=== PATIENT | female | born 1975 | race Caucasian/White ===

== ENCOUNTER 2018-02-02 21:52 | Emergency (ER) | payer BC, MEDICAID ==
[~2018-02-02] VITALS: Ht 177.8 cm; Wt 91.0 kg
[2018-02-02 22:38] LABS: BASOPHILS # (AUTO) 0.08 x10^3/uL (0-0.1); BASOPHILS % (AUTO) 1 % (0-1); EOSINOPHILS # (AUTO) 0.16 x10^3/uL (0-0.4); EOSINOPHILS % (AUTO) 2 % (1-7); LYMPHOCYTES # (AUTO) 1.55 x10^3/uL (1-3.4); LYMPHOCYTES % (AUTO) 18 % (22-44); MD NO; MEAN CORPUSCULAR HEMOGLOBIN 27.5 pg (27.0-34.8); MEAN CORPUSCULAR HGB CONC 33.5 g/dL (32.4-35.8); MEAN CORPUSCULAR VOLUME 82.2 fL (80-100); MEAN PLATELET VOLUME 10.4 fL (7.4-10.4); MONOCYTES # (AUTO) 0.57 x10^3/uL (0.2-0.8); MONOCYTES % (AUTO) 7 % (2-9); NEUTROPHILS # (AUTO) 6.19 x10^3/uL (1.8-6.8); NEUTROPHILS % (AUTO) 72 % (42-75); PLATELET COUNT 245 x10^3/uL (130-400); RED BLOOD COUNT 4.71 x10^6/uL (3.82-5.3); RED CELL DISTRIBUTION WIDTH 15.2 % (9.6-15.2)
[2018-02-02 22:44] LABS: ALBUMIN 3.4 g/dL (3.4-5.0); ANION GAP 6 mmol/L (5-15); CALCIUM 8.1 mg/dL (8.5-10.1); CHLORIDE 109 mmol/L (98-107)
[2018-02-02 22:44] LABS: MICROSCOPIC NOT IND
[2018-02-02 22:46] LABS: SALICYLATE LEVEL < 1.7 mg/dL (2.8-20.0)
[2018-02-02 22:53] LABS: ALANINE AMINOTRANSFERASE 27 U/L (12-78); ALKALINE PHOSPHATASE 69 U/L (45-117); BILIRUBIN,TOTAL 0.2 mg/dL (0.2-1.0); CREATININE 0.92 mg/dL (0.55-1.02); FREE T4 (FREE THYROXINE) 0.84 ng/dL (0.76-1.46); TOTAL PROTEIN 6.7 g/dL (6.4-8.2)
[2018-02-02 22:55] LABS: ACETAMINOPHEN < 2 mcg/mL (10-30)
[2018-02-02 22:55] LABS: AMPHETAMINE SCREEN, URINE Negative (Negative); BARBITURATE SCREEN, URINE Negative (Negative); BENZODIAZEPINE SCREEN, URINE Negative (Negative); CANNABINOID SCREEN, URINE Positive (Negative); COCAINE SCREEN, URINE Negative (Negative); METHADONE SCREEN, URINE Negative (Negative); OPIATE SCREEN, URINE Negative (Negative)
[2018-02-02 23:02] LABS: CULTURE INDICATED? NO
[2018-02-03 00:40] VITALS: BP 98/67
== END 2018-02-03 00:43 | disposition home or self-care (01) ==
LOC: ED 23:19
DX: R53.1 Weakness (principal); R20.2 Paresthesia of skin; F31.9 Bipolar disorder, unspecified; F17.200 Nicotine dependence, unspecified, uncomplicated
CPT/HCPCS: 36415; 70450; 80053; 80178; 80307; 80329; 81003; 84439; 84443; 85025; 93005; 99284; G0480